=== PATIENT | male | born 1985 | race Two or more races ===

== ENCOUNTER 2018-02-22 21:54 | Emergency (ER) | payer OTHER ==
[~2018-02-22] VITALS: Ht 177.8 cm; Wt 70.3 kg
== END 2018-02-22 23:59 | disposition home or self-care (01) ==
LOC: ER 21:54
DX: S01.82XA Laceration with foreign body of other part of head, initial encounter (principal); W45.8XXA Other foreign body or object entering through skin, initial encounter; Y93.01 Activity, walking, marching and hiking; Y92.89 Other specified places as the place of occurrence of the external cause; Y99.8 Other external cause status